=== PATIENT | female | born 1930 | race Caucasian/White ===

== ENCOUNTER → 2016-12-31 | Outpatient (CLI) | payer OTHER, MEDICARE | LOC: FIMAGING 15:35 | PROVIDERS: ATTEND Physician Assistant | DX: Z47.89 Encounter for other orthopedic aftercare (principal); Z98.1 Arthrodesis status ==

== ENCOUNTER → 2017-07-13 | Outpatient (CLI) | payer OTHER, MEDICARE | LOC: FIMAGING 11:08 | PROVIDERS: ATTEND Internal Medicine Rheumatology | DX: Z13.820 Encounter for screening for osteoporosis (principal); M81.0 Age-related osteoporosis without current pathological fracture ==

== ENCOUNTER → 2017-07-16 | Outpatient (CLI) | payer OTHER, MEDICARE | LOC: FIMAGING 12:55 | PROVIDERS: ATTEND Physical Medicine & Rehabilitation | DX: M46.92 Unspecified inflammatory spondylopathy, cervical region (principal); M46.94 Unspecified inflammatory spondylopathy, thoracic region; M50.323 Other cervical disc degeneration at C6-C7 level; M48.04 Spinal stenosis, thoracic region; M48.03 Spinal stenosis, cervicothoracic region ==

== ENCOUNTER → 2017-07-23 | Outpatient (CLI) | payer OTHER, MEDICARE ==
[~2017-07-23] MED LIST: GADOBUTROL 10 ML VIAL IVP ONE
== END ==
LOC: FIMAGING 08:28
PROVIDERS: ATTEND Physical Medicine & Rehabilitation
DX: M84.88 Other disorders of continuity of bone, other site (principal); M41.9 Scoliosis, unspecified
CPT/HCPCS: 72157; 78306; A9503; A9585

== ENCOUNTER → 2018-11-07 | Outpatient (CLI) | payer OTHER, MEDICARE ==
[~2018-11-07] MED LIST changes: +BUPIVACAINE 0.25% 30 ML SDV ONE; +DEPO METHYLPREDNISOLONE 40 MG/ML SDV ONE; -GADOBUTROL 10 ML VIAL IVP ONE; +LIDOCAINE 1% 300 MG/30 ML SDV ONE
== END ==
LOC: FIMAGING 09:57
PROVIDERS: ATTEND Orthopaedic Surgery
DX: M76.899 Other specified enthesopathies of unspecified lower limb, excluding foot (principal)
CPT/HCPCS: 76942; J1030